=== PATIENT | male | born 1970 | race Caucasian/White ===

== ENCOUNTER 2020-06-20 17:24 | Emergency (ER) | payer OTHER ==
[~2020-06-20] VITALS: Ht 172.7 cm; Wt 74.8 kg
[~2020-06-20 17:24] MED LIST: ESCI10TA PO; MAG-55 PO; MULT-1045 PO; OMEG500C PO; SIME125C PO
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
[2020-06-20] MEDS ORDERED: TETRACAINE HCL 0.5% OPHT DROP 2 ML BOTTLE OP ONE (17:45)
[2020-06-20] MEDS ORDERED: FLUORESCEIN SODIUM 1 MG STRIP OP ONE (17:45)
[2020-06-20] MEDS ORDERED: FLUORESCEIN SODIUM 1 MG STRIP ONE (17:50)
[2020-06-20] MEDS ORDERED: TETRACAINE HCL 0.5% OPHT DROP 2 ML BOTTLE ONE (17:50)
--- NOTE | 2020-06-20 18:00 | NUR ---
Gave pt RX and d/c instructions, pt verbalized understanding.
== END 2020-06-20 18:05 | disposition home or self-care (01) ==
LOC: ER 17:25
DX: S05.01XA Injury of conjunctiva and corneal abrasion without foreign body, right eye, initial encounter (principal); W51.XXXA Accidental striking against or bumped into by another person, initial encounter; Y92.89 Other specified places as the place of occurrence of the external cause; H11.31 Conjunctival hemorrhage, right eye; Z88.2 Allergy status to sulfonamides; Z88.8 Allergy status to other drugs, medicaments and biological substances; F32.9 Major depressive disorder, single episode, unspecified; Z79.899 Other long term (current) drug therapy; Z98.890 Other specified postprocedural states
CPT/HCPCS: A4663

== ENCOUNTER 2021-03-04 12:55 | Emergency (ER) | payer OTHER ==
[~2021-03-04] VITALS: Ht 172.7 cm; Wt 73.5 kg
[2021-03-04] MEDS ORDERED: NAPR-1164 PO (14:16)
--- NOTE | 2021-03-04 14:20 | NUR ---
pt refused the sling, pt said he has one at home.
--- NOTE | 2021-03-04 14:27 | NUR ---
Patient discharged to home in stable condition. Written and verbal after care instructions given. Patient verbalizes understanding of instructions. Stressed follow up or return to ER for worsening s/s.
== END 2021-03-04 14:40 | disposition home or self-care (01) ==
LOC: ER 12:55
DX: M25.511 Pain in right shoulder (principal); M79.671 Pain in right foot; S99.921A Unspecified injury of right foot, initial encounter; X58.XXXA Exposure to other specified factors, initial encounter; Y92.89 Other specified places as the place of occurrence of the external cause; Z88.1 Allergy status to other antibiotic agents; Z88.2 Allergy status to sulfonamides; F32.A Depression, unspecified; F41.9 Anxiety disorder, unspecified; Z79.899 Other long term (current) drug therapy
CPT/HCPCS: 73030; 73630; A4663